=== PATIENT | male | born 1995 | race Two or more races ===

== ENCOUNTER 2024-06-12 10:27 | Emergency (ER) | payer SELFPAY ==
[~2024-06-12] VITALS: Ht 165.1 cm; Wt 82.0 kg
[2024-06-12 10:29] VITALS: O2SAT 98
[2024-06-12 10:35] VITALS: TEMP 36.9; O2SAT 98
[2024-06-12 11:31] VITALS: BP 171/110; PULSE 87; RESP 16
[2024-06-12] MEDS: IBUPROFEN 400MG TABLET PO ONE (11:31)
[2024-06-12] MEDS ORDERED: IBUP-2030 MT (12:00)
== END 2024-06-12 12:30 | disposition home or self-care (01) ==
LOC: ER 10:27
DX: S52.602D Unspecified fracture of lower end of left ulna, subsequent encounter for closed fracture with routine healing (principal); X58.XXXD Exposure to other specified factors, subsequent encounter; Y92.89 Other specified places as the place of occurrence of the external cause
CPT/HCPCS: 73090; 99283

== ENCOUNTER 2025-02-20 11:49 | Emergency (ER) | payer SELFPAY ==
[~2025-02-20] VITALS: Ht 172.7 cm; Wt 85.0 kg
[~2025-02-20 11:49] MED LIST: IBUP-2030 MT
[2025-02-20 11:57] VITALS: O2SAT 99
[2025-02-20 12:46] LABS: BASOPHILS % 0.9 % (0.0-2.0); EOSINOPHILS % 1.6 % (0.0-5.0); HEMATOCRIT. 46.2 % (42.0-52.0); HEMOGLOBIN. 16.1 g/dL (14.0-18.0); LYMPHOCYTES % 55.0 % (20.0-50.0); MEAN PLATELET VOLUME 10.0 fl (7.4-10.4); MONOCYTES % 4.2 % (2.0-8.0); NEUTROPHILS % 38.3 % (40.0-76.0); PLATELET 158 x1000/uL (130-400); RED BLOOD CELL COUNT 5.63 mill/uL (4.7-6.1); RED CELL DISTRIBUTION WIDTH 14.3 % (11.6-14.6)
[2025-02-20] MEDS: CEFTRIAXONE SODIUM 500MG VIAL IM ONE (13:00)
[2025-02-20] MEDS: AZITHROMYCIN 500 MG TABLET PO ONE (13:00)
[2025-02-20] MEDS: LIDOCAINE HCL 1% 20ML VIAL INFIL ONE (13:00)
[2025-02-20 13:03] LABS: CREATININE 1.3 mg/dL (0.6-1.3); UREA NITROGEN BLOOD 5 mg/dL (9-23)
[2025-02-20 13:05] LABS: ASPARTATE AMINOTRANSFERASE 31 IU/L (<34); BILIRUBIN DIRECT 0.5 mg/dL (<=3.0); BILIRUBIN TOTAL 2.2 mg/dL (0.1-1.0); PROTEIN TOTAL 7.6 g/dL (6.0-8.3)
[2025-02-20 13:09] LABS: CLARITY URINE CLEAR (CLEAR); COLOR URINE YELLOW (YELLOW); GLUCOSE URINE NEGATIVE (NEGATIVE); KETONES URINE NEGATIVE (NEGATIVE); LEUKOCYTE ESTERASE URINE NEGATIVE (NEGATIVE); NITRITE URINE NEGATIVE (NEGATIVE); OCCULT BLOOD URINE TRACE (NEGATIVE); PH URINE 5.5 (4.5-8.0); PROTEIN URINE NEGATIVE (NEGATIVE); SPECIFIC GRAVITY URINE 1.014 (1.005-1.030); UROBILINOGEN URINE 0.2 E.U./dL (0.2-1.0)
[2025-02-20 13:19] LABS: SQUAMOUS EPITHELIAL CELL URINE FEW /lpf (RARE/1+)
[2025-02-20 13:22] LABS: RBC URINE 0-2 /hpf (0-2); WBC URINE 0-2 /hpf (0-2)
[2025-02-20 13:23] LABS: BACTERIA URINE NONE SEEN; MUCUS URINE TRACE /lpf (NONE/TRACE)
[2025-02-20 13:32] LABS: TROPONIN I HIGH SENSITIVITY 6 ng/L (3.0-53)
[2025-02-20 13:50] VITALS: BP 150/106; PULSE 72; RESP 18; TEMP 37; O2SAT 99
[2025-02-23 06:08] LABS: CHLAMYDIA TRACHOMATIS NAA Negative (Negative); NEISSERIA GONORRHOEAE NAA Negative (Negative)
== END 2025-02-20 13:51 | disposition home or self-care (01) ==
LOC: ER 11:49
DX: R53.1 Weakness (principal); K21.9 Gastro-esophageal reflux disease without esophagitis
CPT/HCPCS: 87491; 87591; 80076; 80048; 81003; 83735; 85025; 86592; 84484; 36415; 93005; 96372; 99284; J0696; J2003; Z7610 ×2